=== PATIENT | female | born 1990 | race Caucasian/White ===

== ENCOUNTER → 2020-11-11 | Outpatient (CLI) | payer BC, OTHER ==
[~2020-11-11] MED LIST: AMOX1TAB58 PO; CASIRIVIMAB/IMDEVIMAB 600/600mg in IV NS TV=50 ML IV ONE; DEXA4TAB PO
[2020-11-11 17:53] VITALS: BP 108/74
--- NOTE | 2020-11-11 18:23 | NUR ---
PATIENT ARRIVED FOR REGENERON IV INFUSION. PERIPHERAL IV INITIATEDT O THE RAC, FLUSHED WITH NS 10ML, REGENERON INFUSING.
[2020-11-11 19:45] VITALS: BP 98/65
--- NOTE | 2020-11-11 19:45 | NUR ---
PT's IV discontinued, no complications. Vital signs obtained. PT stated she felt fine. PT ambulated to entrance escorted by staff.
== END | disposition home or self-care (01) ==
LOC: OPINF 16:51
PROVIDERS: ATTEND Family Medicine
DX: U07.1 COVID-19 (principal); J96.00 Acute respiratory failure, unspecified whether with hypoxia or hypercapnia; F41.9 Anxiety disorder, unspecified; F32.9 Major depressive disorder, single episode, unspecified
CPT/HCPCS: M0243; Q0243; 36592; 96365

== ENCOUNTER 2020-11-12 08:58 | Inpatient (IN) | payer SELFPAY ==
[~2020-11-12] VITALS: Ht 170.2 cm; Wt 81.0 kg
[2020-11-12] MEDS ORDERED: IV RINGERS SOLUTION,LACTATED 1,000 ML IV ONE (09:45)
[2020-11-12] MEDS ORDERED: IV NORMAL SALINE 1,000ML 1,000 ML IV ONE (09:45)
--- NOTE | 2020-11-12 09:46 | PHYS DOC ---
Past History Past Surgical History: No Surgical History Alcohol Use: None General Adult EDM: Chief Complaint: NAUSEA/VOMITING/DIARRHEA HPI: HPI: Patient is a 30-year-old female coming in for multiple complaints. Patient was diagnosed with COVID-19 5 days ago, also started having symptoms 5 days ago. 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 Patient has not been vaccinated against Covid though. Patient has had a cough, congestion, loss of taste smell, headache, body aches, vomiting, and about 3 episodes of diarrhea per day. Patient has a temperature of 103. Has a history of anxiety. Denies any history of lung problems. Review of Systems: Review of Systems: All other systems within normal limits except for as noted in the HPI Allergies: Allergies: Allergies Coded Allergies Type Severity Reaction Last Updated Verified No Known Drug Allergies 11/12/20 No Physical Exam: PE: Constitutional: Well developed, well nourished, no acute distress, non-toxic appearance. [] HENT: Normocephalic, atraumatic, bilateral external ears normal, nose normal. [] Eyes: PERRLA, conjunctiva normal, no discharge. [] Neck: No rigidity, supple, no stridor. [] Cardiovascular: Regular rate and rhythm, brisk cap refill [] Lungs & Thorax: Non labored symmetric respirations, no tachypnea or respiratory distress [] Abdomen: Soft, nondistended. Skin: Warm, dry, no erythema, no rash. [] Back: Unremarkable Extremities: No deformities, range of motion grossly intact, no lower extremity edema [] Neurologic: Alert and oriented X 3, no focal deficits noted. [] Psychologic: Affect normal, judgement normal, mood normal. [] Current Patient Data: Vital Signs: Vital Signs Date Time Temp Pulse Resp B/P (MAP) Pulse Ox O2 Delivery O2 Flow Rate FiO2 11/12/20 09:00 103.2 102 14 113/63 90 Room Air EKG: EKG: [] Radiology/Procedures: Radiology/Procedures: [address] [address] IMAGING REPORT Signed PATIENT: IVANNA HOLLIDAY MACCOUNT: [id number] : 1990 LOCATION: ER AGE: 30 SEX: F EXAM STATUS: REG ER ORD. PHYSICIAN: VISHNU CAMACHO MD REASON: covid, hypoxic, pe PROCEDURE: CT ANGIOGRAPHY CHEST EXAMINATION: CTA Chest With IV contrast INDICATION:30 years, Female, COVID positive, hypoxia, evaluate for pulmonary embolism. COMPARISON: None. TECHNIQUE: Spiral CTA was obtained from the jugular notch through the posterior costophrenic recess. 3-D MIPS, sagittal and coronal reformats were obtained. Exposure: One or more of the following individualized dose reduction techniques were utilized for this examination: 1. Automated exposure control 2. Adjustment of the mA and/or kV according to patient size 3. Use of iterative reconstruction technique. FINDINGS: LUNGS/PLEURA: Central airways are patent. Multifocal bilateral consolidative and groundglass opacities. Trace bilateral pleural effusions. No pneumothorax. MEDIASTINUM: Multiple prominent to mildly enlarged mediastinal lymph nodes. The thoracic aorta and pulmonary arteries are normal in caliber. Suboptimal evaluation for the pulmonary embolism is due to contrast bolus timing. No evidence of pulmonary embolism to the segmental level. The heart is normal in size. No pericardial effusion. No detectable calcified coronary atherosclerosis. The visualized thyroid and the esophagus are unremarkable. AXILLA/SOFT TISSUE: No supraclavicular or axillary adenopathy. Regional soft tissues are within normal limits. UPPER ABDOMEN: The visualized upper abdomen appears unremarkable. BONES: No evidence of acute fractures or aggressive osseous lesions. IMPRESSION: 1. Evaluation for pulmonary embolism is limited due to contrast bolus timing. No evidence of pulmonary embolism to the segmental level. 2. Extensive multifocal bilateral consolidative and groundglass opacities, consistent with known patient history of COVID 19 pneumonia. 3. Trace bilateral pleural effusions. 4. Prominent to mildly enlarged mediastinal lymph nodes, likely reactive. Electronically signed by: Fran Fay MD (11/12/2020 10:47 AM) [id number] DICTATED AND SIGNED BY: FRAN FAY MD DATE: 11/12/20 1035 CC: VISHNU CAMACHO MD; DILSHAD WEBSTER MD ~MTH0 0 [] Heart Score: C/O Chest Pain: Yes HEART Score for Chest Pain: HEART Score for Chest Pain Response (Comments) Value History Slighlty/Non-Suspicious 0 ECG Normal 0 Age < 45 0 Risk Factors No Risk Factors 0 Troponin < Normal Limit 0 Total 0 Risk Factors: Risk Factors: DM, Current or recent (<one month) smoker, HTN, HLP, family history of CAD, obesity. Risk Scores: Score 0 - 3: 2.5% MACE over next 6 weeks - Discharge Home Score 4 - 6: 20.3% MACE over next 6 weeks - Admit for Clinical Observation Score 7 - 10: 72.7% MACE over next 6 weeks - Early Invasive Strategies Course & Med Decision Making: Course & Med Decision Making Pertinent Labs and Imaging studies reviewed. (See chart for details) [] Dragon Disclaimer: Dragon Disclaimer: This electronic medical record was generated, in whole or in part, using a voice recognition dictation system. Departure Departure: Impression: Primary Impression: Pneumonia due to COVID-19 virus Admitting Physician: Dilshad Webster Condition: STABLE Referrals: DILSHAD WEBSTER MD (PCP) VISHNU CAMACHO MD Nov 12, 2020 09:46
[2020-11-12] MEDS ORDERED: CONTRAST GIVEN. MC PRN (10:00)
[2020-11-12] MEDS ORDERED: IOHEXOL 350 MG/ML 100 ML VIAL. IV ONE (10:00)
[2020-11-12 10:07] LABS: BASO % 0 % (0-3); EOS % 0 % (0-3); HEMATOCRIT 39.9 % (36.0-47.0); HEMOGLOBIN 13.5 g/dL (12.0-15.5); LYMPH # 0.5 x10^3/uL (1.0-4.8); LYMPH % 12 % (24-48); MEAN CORPUSCULAR HEMOGLOBIN 32 pg (25-35); MEAN CORPUSCULAR HGB CONC 34 g/dL (31-37); MEAN CORPUSCULAR VOLUME 95 fL (79-100); MONO # 0.2 x10^3/uL (0.0-1.1); MONO % 5 % (0-9); NEUT # 3.8 x10^3uL (1.8-7.7); NEUT % 84 % (31-73); PLATELET COUNT 107 x10^3/uL (140-400); RED BLOOD COUNT 4.22 x10^6/uL (3.50-5.40); RED CELL DISTRIBUTION WIDTH 12.8 % (11.5-14.5); WHITE BLOOD COUNT 4.5 x10^3/uL (4.0-11.0)
[2020-11-12] MEDS ORDERED: KETOROLAC 15 MG/ML VIAL. IVP ONE (10:15)
[2020-11-12] MEDS ORDERED: ACETAMINOPHEN 500 MG TABLET PO ONE (10:15)
[2020-11-12] MEDS ORDERED: ONDANSETRON PF 4 MG/2 ML VIAL. IVP ONE (10:15)
[2020-11-12 10:22] LABS: CALCIUM 8.1 mg/dL (8.5-10.1); CREATININE 0.9 mg/dL (0.6-1.0); GFR 72.6; POTASSIUM 3.6 mmol/L (3.5-5.1)
[2020-11-12 10:35] LABS: ALBUMIN 3.2 g/dL (3.4-5.0); ALBUMIN/GLOBULIN RATIO 1.1 (1.0-1.7); TOTAL BILIRUBIN 0.2 mg/dL (0.2-1.0); TOTAL PROTEIN 6.1 g/dL (6.4-8.2)
--- NOTE | 2020-11-12 10:49 | RAD ---
EXAMINATION: CTA Chest With IV contrast INDICATION:30 years, Female, COVID positive, hypoxia, evaluate for pulmonary embolism. COMPARISON: None. TECHNIQUE: Spiral CTA was obtained from the jugular notch through the posterior costophrenic recess. 3-D MIPS, sagittal and coronal reformats were obtained. Exposure: One or more of the following individualized dose reduction techniques were utilized for thi s examination: 1. Automated exposure control 2. Adjustment of the mA and/or kV according to patient size 3. Use of iterative reconstruction technique. FINDINGS: LUNGS/PLEURA: Central airways are patent. Multifocal bilateral consolidative and groundglass opacitie s. Trace bilateral pleural effusions. No pneumothorax. MEDIASTINUM: Multiple prominent to mildly enlarged mediastinal lymph nodes. The thoracic aorta and pu lmonary arteries are normal in caliber. Suboptimal evaluation for the pulmonary embolism is due to co ntrast bolus timing. No evidence of pulmonary embolism to the segmental level. The heart is normal in size. No pericardial effusion. No detectable calcified coronary atherosclerosis. The visualized thyr oid and the esophagus are unremarkable. AXILLA/SOFT TISSUE: No supraclavicular or axillary adenopathy. Regional soft tissues are within paz l limits. UPPER ABDOMEN: The visualized upper abdomen appears unremarkable. BONES: No evidence of acute fractures or aggressive osseous lesions. IMPRESSION: 1. Evaluation for pulmonary embolism is limited due to contrast bolus timing. No evidence of pulmonar y embolism to the segmental level. 2. Extensive multifocal bilateral consolidative and groundglass opacities, consistent with known luis miguel ent history of COVID 19 pneumonia. 3. Trace bilateral pleural effusions. 4. Prominent to mildly enlarged mediastinal lymph nodes, likely reactive. Electronically signed by: Ramya Fay MD (11/12/2020 10:47 AM) [id number]
[2020-11-12] MEDS ORDERED: ACETAMINOPHEN 325 MG TABLET PO PRN (11:00)
[2020-11-12] MEDS ORDERED: ONDANSETRON PF 4 MG/2 ML VIAL. IVP PRN (11:00)
[2020-11-12] MEDS ORDERED: KETOROLAC 15 MG/ML VIAL. IVP PRN (11:00)
[2020-11-12] MEDS ORDERED: MORPHINE SULFATE 2 MG/ML DISP.SYRIN. IVP PRN (11:00)
[2020-11-12] MEDS ORDERED: DEXAMETHASONE SOD PHOS 10 MG/ML VIAL. IV ONE (11:15)
[2020-11-12] MEDS ORDERED: AZITHROMYCIN 500 MG in IV NORMAL SALINE 250ML 250 ML IV ONE (11:45)
[2020-11-12] MEDS ORDERED: PIP/TAZO PER PHARMACY MC PRN (12:45)
[2020-11-12 14:22] LABS: BACTERIA,URINE MOD /HPF (0-FEW); BILIRUBIN,URINE NEG (NEG); CLARITY,URINE CLEAR; COLOR,URINE STRAW; GLUCOSE,URINE NEG (NEG); NITRITE,URINE NEG (NEG); RBC,URINE RARE /HPF (0-2); SQUAMOUS EPITHELIAL CELL,UR MOD /LPF; UROBILINOGEN,URINE 0.2 mg/dL (0.2 mg/dL); WBC,URINE OCC /HPF (0-4)
[2020-11-12] MEDS ORDERED: REMDESIVIR LOAD in IV NORMAL SALINE 250ML TV IV ONE (15:00)
[2020-11-12 17:12] VITALS: BP 120/83
[2020-11-12] MEDS: ENOXAPARIN 40 MG/0.4 ML SYRINGE. SQ SCH (17:14)
[2020-11-12] MEDS: CHOLECALCIFEROL (VITAMIN D3) 1,000 UNIT TABLET PO SCH (17:14)
[2020-11-12] MEDS: IV NORMAL SALINE 1,000ML 1,000 ML IV SCH ×2 (17:15→20:55)
[2020-11-12] MEDS: DEXAMETHASONE SOD PHOS 10 MG/ML VIAL. IV SCH ×2 (17:15→23:49)
[2020-11-12 19:30] VITALS: BP 116/82
[2020-11-12] MEDS: PIPERACILLIN/TAZOBACTAM 3.375 GM in IV NORMAL SALINE 50ML 50 ML IV SCH ×2 (19:47→23:49)
[2020-11-13 00:20] VITALS: BP 121/84
[2020-11-13] MEDS: PIPERACILLIN/TAZOBACTAM 3.375 GM in IV NORMAL SALINE 50ML 50 ML IV SCH ×4 (05:57→23:56)
[2020-11-13] MEDS: IV NORMAL SALINE 1,000ML 1,000 ML IV SCH (05:57)
[2020-11-13] MEDS: DEXAMETHASONE SOD PHOS 10 MG/ML VIAL. IV SCH ×4 (05:57→23:56)
[2020-11-13 06:15] VITALS: BP 142/88
[2020-11-13 07:06] LABS: BASO % 0 % (0-3); EOS % 0 % (0-3); HEMATOCRIT 41.2 % (36.0-47.0); HEMOGLOBIN 13.7 g/dL (12.0-15.5); LYMPH # 0.7 x10^3/uL (1.0-4.8); LYMPH % 28 % (24-48); MEAN CORPUSCULAR HEMOGLOBIN 32 pg (25-35); MEAN CORPUSCULAR HGB CONC 33 g/dL (31-37); MEAN CORPUSCULAR VOLUME 96 fL (79-100); MONO # 0.1 x10^3/uL (0.0-1.1); MONO % 5 % (0-9); NEUT # 1.6 x10^3uL (1.8-7.7); NEUT % 66 % (31-73); PLATELET COUNT 130 x10^3/uL (140-400); RED BLOOD COUNT 4.29 x10^6/uL (3.50-5.40); RED CELL DISTRIBUTION WIDTH 12.9 % (11.5-14.5); WHITE BLOOD COUNT 2.4 x10^3/uL (4.0-11.0)
[2020-11-13 07:22] LABS: CALCIUM 8.4 mg/dL (8.5-10.1); GFR 64.3; POTASSIUM 3.8 mmol/L (3.5-5.1)
[2020-11-13] MEDS: LACTOBACILLUS RHAMNOSUS GG 1 CAPSULE. PO SCH ×2 (10:19→19:43)
[2020-11-13] MEDS: CHOLECALCIFEROL (VITAMIN D3) 1,000 UNIT TABLET PO SCH (10:19)
[2020-11-13 11:00] VITALS: BP 122/89
[2020-11-13] MEDS: ENOXAPARIN 40 MG/0.4 ML SYRINGE. SQ SCH (13:10)
[2020-11-13 15:00] VITALS: BP 118/82
[2020-11-13] MEDS: REMDESIVIR 100mg in NORMAL SALINE 250ML X 4 DAYS IV SCH (15:00)
[2020-11-13 19:59] VITALS: BP 111/79
--- NOTE | 2020-11-13 20:07 | HP ---
ADMIT DATE: 11/13/2020 HISTORY OF PRESENT ILLNESS: A 30-year-old female who has been diagnosed with COVID-19 five days ago and increased shortness of breath. 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 The patient has been having cough, congestion, body aches, diarrhea, temperature up to 103 degrees with lung problems. The patient came in through the emergency room. CTA there still showed extensive multifocal pulmonary consolidation along with her COVID-19. She has been placed on IV antibiotic therapy protocol, remdesivir, IV antibiotics of Zosyn and Levaquin and continued to monitor her very closely as the consolidation is quite significant. PAST MEDICAL HISTORY: Eating disorder, depression and anxiety. FAMILY HISTORY: Unremarkable. ALLERGIES: No known allergies. SOCIAL HISTORY: Denies smoking, alcohol or drug use. REVIEW OF SYSTEMS: Increased shortness of breath, cough, fever, chills, some mild nausea and elevated temperature or diarrhea. Otherwise, neurologically stable. PHYSICAL EXAMINATION: GENERAL: This is a pleasant white female, in moderate amount of distress. VITAL SIGNS: Blood pressure 113/60, respiratory rate 17, pulse 102, temperature 103.2, 2 liters upwards of 95. The patient is alert and oriented. LUNGS: Diminished. Poor movement of air throughout, otherwise. The patient has noted the CTA demonstrated extensive consolidation. HEENT: The head was atraumatic, normocephalic. Eyes: PERRLA without jaundice. The mouth and throat were normal. NECK: Supple. CARDIOVASCULAR: Regular sinus rhythm. ABDOMEN: Soft, nontender. EXTREMITIES: No clubbing, cyanosis, nor edema. NEUROLOGIC: Stable on that regard. LABORATORY DATA: Pretty much unremarkable as far as describing her situation and the severity of the x-rays. IMPRESSION: COVID-19 pneumonia, bilateral consolidation, acute respiratory distress and sepsis. PLAN: As above. Continue with IV antibiotic therapy, remdesivir and Decadron. Make further evaluation on her as indicated. DAVIDE/ANASTASIYA DR: DAVIDE/deepa TID: [id number]
[2020-11-13 23:00] VITALS: BP 117/85
[2020-11-14] MEDS: DEXAMETHASONE SOD PHOS 10 MG/ML VIAL. IV SCH ×2 (05:45→11:30)
[2020-11-14] MEDS: PIPERACILLIN/TAZOBACTAM 3.375 GM in IV NORMAL SALINE 50ML 50 ML IV SCH ×2 (05:45→11:31)
[2020-11-14 05:59] VITALS: BP 125/76
[2020-11-14] MEDS: CHOLECALCIFEROL (VITAMIN D3) 1,000 UNIT TABLET PO SCH (09:04)
[2020-11-14] MEDS: LACTOBACILLUS RHAMNOSUS GG 1 CAPSULE. PO SCH (09:04)
[2020-11-14] MEDS ORDERED: ACETAMINOPHEN 325 MG TABLET PO PRN (09:30)
[2020-11-14 10:50] VITALS: BP 132/87
--- NOTE | 2020-11-14 14:57 | RAD ---
AP chest x-ray COMPARISON: CT chest November 12, 2020 HISTORY: Shortness of breath, Covid pneumonia. FINDINGS: Heart size stable. Mediastinal silhouette is normal. No pneumothorax. No pleural effusions. Decreased distribution and density of the pulmonary interstitial and alveolar infiltrates as the shira or exam with mild to moderate residual perihilar and lower lobe infiltrates remaining. IMPRESSION: Some improvement of the lungs with persistent interstitial and alveolar infiltrates at th e lung bases. See above. Electronically signed by: Sami Marin MD (11/14/2020 2:54 PM) [id number]
[2020-11-14] MEDS: ENOXAPARIN 40 MG/0.4 ML SYRINGE. SQ SCH (15:17)
[2020-11-14] MEDS: REMDESIVIR 100mg in NORMAL SALINE 250ML X 4 DAYS IV SCH (15:18)
[2020-11-14 15:45] VITALS: BP 124/85
[2020-11-14] MEDS ORDERED: AMOX1TAB58 PO (15:56)
[2020-11-14] MEDS ORDERED: DEXA4TAB PO (15:56)
== END 2020-11-14 17:10 | disposition home or self-care (01) | DRG 871 ==
LOC: ER 08:58 → ICU 10:57 → 1 SOUTH 11-13 18:55
PROVIDERS: ADMIT Family Medicine; ATTEND Family Medicine
PROC: XW033E5 Introduction of Remdesivir Anti-infective into Peripheral Vein, Percutaneous Approach, New Technology Group 5 (ICD-10-PCS; principal; 2020-11-12)
DX: A41.89 Other specified sepsis (principal); U07.1 COVID-19; J12.82 Pneumonia due to coronavirus disease 2019; F41.9 Anxiety disorder, unspecified; F32.9 Major depressive disorder, single episode, unspecified; R06.03 Acute respiratory distress; Z86.59 Personal history of other mental and behavioral disorders
CPT/HCPCS: 36415; 71045; 71275; 80048; 80053; 81001; 82803; 83605; 83880; 84484; 85025; 85379; 87040; 87086; 96361; 96374; 96375; J1100; J1650; J1885; J1956; J2405; J2543; J7050; J7120; Q9967; 99285-25; J7030